=== PATIENT | female | born 1945 | race Caucasian/White ===

== ENCOUNTER 2017-04-11 22:35 | Emergency (ER) | payer OTHER ==
[~2017-04-11] VITALS: Ht 167.6 cm; Wt 131.0 kg
[~2017-04-11 22:35] MED LIST: BACT800T5 PO; LEVO75TA3 PO; LISI10TA PO; TIMO0.5S29 EACH EYE
[2017-04-11 22:54] VITALS: BP 157/105; PULSE 88; RESP 24; TEMP 100.2; O2SAT 98
[2017-04-11 23:00] VITALS: BP 157/105; PULSE 88; RESP 24; TEMP 100.2; O2SAT 98
[2017-04-11] MEDS ORDERED: OXYB5TAB8 PO (23:47)
[2017-04-11] MEDS ORDERED: LEVO75TA3 PO (23:47)
[2017-04-11] MEDS ORDERED: LISI10TA PO (23:47)
[2017-04-11] MEDS ORDERED: TIMO0.5S30 EACH EYE (23:47)
== END 2017-04-12 00:47 | disposition left against medical advice (07) ==
LOC: PHED 22:35
DX: R05 Cough (principal); R09.81 Nasal congestion; M54.9 Dorsalgia, unspecified; R07.81 Pleurodynia
CPT/HCPCS: 87804; 99281